=== PATIENT | male | born 2000 | race Two or more races ===

== ENCOUNTER 2021-01-24 00:49 | Emergency (ER) | payer MEDICAID, OTHER ==
[~2021-01-24] VITALS: Ht 185.4 cm; Wt 83.9 kg
[2021-01-24 00:49] VITALS: BP 136/84
--- NOTE | 2021-01-24 00:55 | NUR ---
IDENTIFIES "SHE/HER" / NAME IS FLAVIO
[2021-01-24] MEDS ORDERED: LORAZEPAM 1 MG TABLET PO ONE (01:00)
[2021-01-24] MEDS ORDERED: LORAZEPAM 1 MG TABLET ONE (01:02)
--- NOTE | 2021-01-24 01:05 | NUR ---
EMT AT BEDSIDE FOR EKG
[2021-01-24] MEDS ORDERED: LORA-259 PO (03:01)
== END 2021-01-24 03:13 | disposition home or self-care (01) ==
LOC: ER 00:50
DX: F19.10 Other psychoactive substance abuse, uncomplicated (principal); F12.929 Cannabis use, unspecified with intoxication, unspecified; F41.9 Anxiety disorder, unspecified; Z79.899 Other long term (current) drug therapy

== ENCOUNTER 2021-02-24 17:33 | Emergency (ER) | payer OTHER, MEDICAID ==
[~2021-02-24] VITALS: Ht 185.4 cm; Wt 83.9 kg
[~2021-02-24 17:33] MED LIST: LORA-259 PO
--- NOTE | 2021-02-24 17:50 | NUR ---
BRITTANY FRJose Antonio HOME C/O "WEAKNESS" S/P SMOKING MARIJUANA/FENTANYL. BG [employer]. PATIENT A/OX4, VERBALLY RESPONSIVE, BREATHING EVEN AND UNLABORED, NO SOB NOTED. NEEDS ATTENDED.
--- NOTE | 2021-02-24 17:53 | NUR ---
DR. PAGE AT BEDSIDE FOR EVAL.
[2021-02-24 18:09] LABS: BASOPHILS % (AUTO) 0.5 % (0.0-2.0); HEMATOCRIT 35 % (39-51); HEMOGLOBIN 11.7 g/dL (13.5-17.5); LYMPHOCYTES # (AUTO) 2.2 K/uL (0.8-4.8); LYMPHOCYTES % (AUTO) 42.8 % (20.0-44.0); MEAN CORPUSCULAR HGB CONC 33 g/dl (31.0-36.0); MEAN CORPUSCULAR VOLUME 84 fL (80-96); MONOCYTES # (AUTO) 0.5 K/uL (0.1-1.30); MONOCYTES % (AUTO) 9.6 % (2.0-12.0); NEUTROPHILS # (AUTO) 2.3 K/uL (1.8-8.9); NEUTROPHILS % (AUTO) 43.1 % (43.0-81.0); PLATELET COUNT (AUTO) 245 K/uL (150-450); RED BLOOD CELL COUNT(AUTO) 4.18 MIL/uL (4.5-6.0); WHITE BLOOD COUNT (AUTO) 5.2 K/uL (4.3-11.0)
[2021-02-24 18:20] LABS: CALCIUM, SERUM 8.6 mg/dL (8.5-10.1); CARBON DIOXIDE 33 mmol/L (21-32); CHLORIDE 103 mmol/L (98-107); CREATININE 0.7 mg/dL (0.6-1.3); GLUCOSE 91 mg/dL (74-106); POTASSIUM 3.3 mmol/L (3.5-5.1); SODIUM SERUM 140 mmol/L (136-145); UREA NITROGEN, BLOOD 15 mg/dL (7-18)
[2021-02-24 18:25] LABS: ALANINE AMINOTRANSFERASE 19 U/L (12-78); ALBUMIN 3.8 g/dL (3.4-5.0); ALCOHOL, BLOOD < 3 mg/dL (0-0); ALKALINE PHOSPHATASE 65 U/L (46-116); ASPARTATE AMINOTRANSFERASE 19 U/L (15-37); BILIRUBIN,DIRECT 0.2 mg/dL (0.0-0.2); BILIRUBIN,TOTAL 0.8 mg/dL (0.2-1.0); TOTAL PROTEIN, SERUM 6.8 g/dL (6.4-8.2)
[2021-02-24 18:28] LABS: ACETAMINOPHEN < 2 ug/ml (10-30)
--- NOTE | 2021-02-24 19:02 | NUR ---
URINE SENT TO LAB.
[2021-02-24] MEDS ORDERED: NALO1DIS2 IJ (19:11)
--- NOTE | 2021-02-24 19:15 | NUR ---
receieved report jerrybladimir bell.
[2021-02-24 19:24] VITALS: BP 120/60
--- NOTE | 2021-02-24 19:24 | NUR ---
Patient discharged to home in stable condition. Written and verbal after care instructions given. Patient verbalizes understanding of instruction. RX given.
[2021-02-24 19:40] LABS: BILIRUBIN,URINE SMALL (NEGATIVE); COLOR,URINE YELLOW (YELLOW); LEUKOCYTE ESTERASE ,URINE Negative (NEGATIVE); NITRITE, URINE Negative (NEGATIVE); PH,URINE 5.5 (5.0-8.0); PROTEIN,URINE 100 mg/dl (NEGATIVE); UGLUCOSE Negative (NEGATIVE); UROBILINOGEN,URINE 0.2 EU/dL (0.2)
[2021-02-24 19:41] LABS: BACTERIA,URINE Rare /HPF (None Seen); RBC,URINE NONE SEEN /HPF (0-2); SQUAMOUS EPITHELIAL CELL,UR Few /HPF (None Seen); WBC,URINE NONE SEEN /HPF (0-3)
== END 2021-02-24 19:25 | disposition home or self-care (01) ==
LOC: EDUNIT# 17:33 → ER 17:39
DX: F19.10 Other psychoactive substance abuse, uncomplicated (principal); F12.929 Cannabis use, unspecified with intoxication, unspecified; F11.10 Opioid abuse, uncomplicated; Z79.899 Other long term (current) drug therapy
CPT/HCPCS: 36415; 80048-TC; 80076-TC; 81001; 85025-TC; G0480